=== PATIENT | female | born 1965 | race Caucasian/White ===

== ENCOUNTER 2023-07-07 13:07 | Outpatient (CLI) | payer BC | END 2023-07-07 13:08 | disposition home or self-care (01) | LOC: CSHRAD 13:07 | PROVIDERS: ATTEND Internal Medicine Rheumatology | DX: R06.02 Shortness of breath (principal); Z87.2 Personal history of diseases of the skin and subcutaneous tissue | CPT/HCPCS: 71046 ==

== ENCOUNTER 2024-02-10 14:05 | Outpatient (CLI) | payer BC | END 2024-02-10 14:06 | disposition home or self-care (01) | LOC: CSHMAMMO 14:05 | PROVIDERS: ATTEND Family Medicine | DX: Z12.31 Encounter for screening mammogram for malignant neoplasm of breast (principal); Z13.820 Encounter for screening for osteoporosis; Z80.3 Family history of malignant neoplasm of breast | CPT/HCPCS: 77063; 77067; 77080 ==

== ENCOUNTER 2024-02-17 10:30 | Outpatient (CLI) | payer BC | END 2024-02-17 10:31 | disposition home or self-care (01) | LOC: CSHMRI 10:30 | PROVIDERS: ATTEND Internal Medicine Gastroenterology | DX: K75.81 Nonalcoholic steatohepatitis (NASH) (principal); K74.3 Primary biliary cirrhosis; R16.0 Hepatomegaly, not elsewhere classified | CPT/HCPCS: 74183 ==